=== PATIENT | male | born 1995 | race Caucasian/White ===

== ENCOUNTER 2020-02-09 01:34 | Emergency (ER) | payer OTHER, SELFPAY ==
[2020-02-09 01:37] VITALS: BP 146/89; PULSE 93; RESP 14; TEMP 36.7; O2SAT 99
--- NOTE | 2020-02-09 01:42 | ED_ITS ---
HPI - General Adult General Chief complaint: Unspecified Stated complaint: Hiccups for 48 Hours Time Seen by Provider: 02/09/20 01:37 History of Present Illness HPI narrative: Hiccups for the past 48 hours. Tried all of the home remedies he could think of. Unable to sleep. He believes that they are due to acid reflux, which he is on medication for. Related Data Allergies Allergy/AdvReac Type Severity Reaction Status Date / Time No Known Allergies Allergy Verified 02/09/20 01:39 Review of Systems Review of Systems: All systems reviewed & are unremarkable except as noted in HPI and below Exam Const: General: healthy appearing, no acute distress and alert Orientation/consciousness: patient oriented x3 Other: Frequent hiccups HENMT: Head: normal to inspection Neck: Neck: normal visual inspection and no lymphadenopathy Chest: Chest palpation & inspection: no tenderness Resp: Effort & Inspection: normal respiratory effort Auscultation: clear to auscultation bilaterally, no rales, no rhonchi and no wheezes Cardio: Jugular venous distension: no JVD Rate: regular rate Rhythm: regular rhythm Heart sounds: no murmurs GI: Inspection: non-distended GI Palp: Yes Soft to palpation and No Tenderness to palpation present (GI) Skin: General skin exam: normal color Neuro: General: patient oriented x3 and moves all extremities Speech: normal speech Extrem: General: no edema Psych: Appearance: well kempt Affect: normal affect Course Vital Signs Vital signs: Vital Signs Temperature 36.7 C 02/09/20 01:37 Pulse Rate 93 02/09/20 01:37 Respiratory Rate 14 02/09/20 01:37 Blood Pressure 146/89 H 02/09/20 01:37 Pulse Oximetry 99 02/09/20 01:37 Temperature 36.9 C 02/09/20 03:21 Pulse Rate 78 02/09/20 03:21 Respiratory Rate 16 02/09/20 03:21 Blood Pressure 136/82 02/09/20 03:21 Pulse Oximetry 98 02/09/20 03:21 Medical Decision Making [facility] Narrative Medical decision making narrative: hiccups resolved with baclofen Vital Signs Vital Signs: Vital Signs Temperature 36.7 C 02/09/20 01:37 Pulse Rate 93 02/09/20 01:37 Respiratory Rate 14 02/09/20 01:37 Blood Pressure 146/89 H 02/09/20 01:37 Pulse Oximetry 99 02/09/20 01:37 Temperature 36.9 C 02/09/20 03:21 Pulse Rate 78 02/09/20 03:21 Respiratory Rate 16 02/09/20 03:21 Blood Pressure 136/82 02/09/20 03:21 Pulse Oximetry 98 02/09/20 03:21 Discharge Plan Discharge Clinical Impression: Hiccups Patient Disposition: Home, Self-Care Condition: Stable Instructions: Hiccups (ED) Prescriptions: New baclofen 10 mg tablet 10 mg PO TID Qty: 5 RF: 0 Follow-up/Referrals: PHYSICIAN,[facility] [Primary Care Provider] - Wolfgang French MD [Physician] -
[2020-02-09] MEDS: BACLOFEN 10 MG TABLET PO (02:34)
[2020-02-09 03:21] VITALS: BP 136/82; PULSE 78; RESP 16; TEMP 36.9; O2SAT 98
== END 2020-02-09 03:22 | disposition home or self-care (01) ==
PROVIDERS: Emergency Provider Emergency Medicine
DX: R06.6 Hiccough (principal); K21.9 Gastro-esophageal reflux disease without esophagitis
CPT/HCPCS: 99283; A9270